=== PATIENT | female | born 1935 | race Caucasian/White ===

== ENCOUNTER 2024-09-25 17:50 | Inpatient (IN) | payer OTHER, SELFPAY ==
[2024-09-25] VITALS (20 sets, daily range): BP systolic 90–195; BP diastolic 46–101; BMI 27.3
[2024-09-25 14:47] LABS: % Basophils 0.4 % (0-2); % Eosinophils 0.5 % (0-6); % Immature Granulocytes 0.5 % (0-0.5); % Lymphocytes 5.1 % (20.5-51.1); % Monocytes 5.7 % (1.7-9.3); % Neutrophils 87.8 % (42.2-75.2); Absolute Basophils 0.1 10^3/uL (0-0.2); Absolute Eosinophils 0.1 10^3/uL (0-0.7); Absolute Immature Granulocytes 0.1 10^3/uL (0-0.05); Absolute Lymphocytes 0.6 10^3/uL (1.2-3.4); Absolute Monocytes 0.7 10^3/uL (0.1-0.6); Absolute Neutrophils 10.4 10^3/uL (1.4-6.5); Hematocrit 38.3 % (37.0-47.0); Hemoglobin 12.4 g/dL (12.0-16.0); Mean Corp Hgb Conc. 32.4 g/dL (33.0-37.0); Mean Corpuscular Hgb 30.6 pg (27.0-31.0); Mean Corpuscular Volume 94.6 fL (81.0-99.0); Mean Platelet Volume 10.5 fL (7.4-10.4); Nucleated Red Blood Cells % 0 %; Platelet Count 206 10^3/uL (130-400); Red Blood Cell Count 4.05 10^6/uL (4.20-5.40); Red Cell Dist. Width 13.7 % (11.5-14.5); White Blood Cell Count 11.8 10^3/uL (4.8-10.8)
[2024-09-25 14:55] LABS: ALT (SGPT) 15 U/L (0-35); AST (SGOT) 32 U/L (14-36); Albumin 4.3 g/dl (3.5-5.0); Alkaline Phosphatase 91 U/L (38-126); Blood Urea Nitrogen 30 mg/dl (7-17); Calcium 9.7 mg/dl (8.4-10.2); Carbon Dioxide 24 mmol/L (22-30); Chloride 105 mmol/L (98-107); Estimated Creatinine Clearance 34 ml/min; Glucose 176 mg/dl (70-99); Potassium 4.4 mmol/L (3.5-5.1); Sodium 139 mmol/L (135-145); Total Bilirubin 0.4 mg/dl (0.2-1.3); Total Protein 6.9 g/dl (6.3-8.2); eGFR 53.85
--- NOTE | 2024-09-25 15:05 | ED.GENMED ---
History of Present Illness
General
Chief Complaint: Chest Pain
Source: patient and family
Exam Limitations: none
Time Seen by Provider: 09/25/24 14:51
Nursing documentation reviewed up to this point in time: agreed with
History of Present Illness
History of Present Illness:
Patient is a 89-year-old female presents to the emergency department with chest pain that similar to her previous MD. Patient states that she had a little discomfort this morning when she woke up at around 1 PM she developed pressure in the
substernal region radiating into her back with nausea but no vomiting. Patient had increased stress today. Patient denies shortness of breath, diaphoresis or palpitations. Patient denies any increased pain with movement or breathing. Patient
denies any vomiting, diarrhea or constipation. Patient denies any melena or hematochezia. Patient has noted recently increasing exertional fatigue and dyspnea. Patient has 3 stents and her last MD was in July 2023. Patient does have a
history of diabetes, hypertension, elevated cholesterol. Patient does not smoke or have a history of smoking. Patient does have a family history of coronary artery disease. Patient denies any fever or chills, nasal congestion, sore throat or
cough. Patient was given aspirin 324 mg en route along with 2 nitroglycerin and no change. 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
Past History
Past History
ED Past Medical History: CAD, HTN, Hypercholesterolemia, NIDDM, MD and Renal failure
ED Past Surgical History: Cholecystectomy and Orthopedic
Social History
Tobacco: Non-smoker
Family History
Family History: CAD
Review of Systems
Review of Systems
All Other Systems: ROS reviewed and negative except as documented in HPI and ROS
Constitutional: Reports fatigue; Denies fever or chills
EENT: Reports no symptoms
Respiratory: Reports no symptoms
Cardiac: Reports chest pain; Denies diaphoresis or palpitations
ABD/GI: Reports nausea; Denies abdominal pain, vomiting, diarrhea, bloody stools or black stools
: Reports no symptoms
Musculoskeletal: Reports back pain
Skin: Reports no symptoms
Neurological: Reports no symptoms
Hematologic/Lymphatic: Reports no symptoms
Phy Exam
Physical Exam
Physical Exam:
Physical Exam
General: moderate distress, alert and appropriate, well nourished, well hydrated
HENT: Normocephalic, supple with no lymphadenopathy, no thyromegaly
Eyes: Clear sclera, conjuctiva without injection
Heart: Regular rhythm and rate. No S3, S4. No murmur. No NVD, bruit
Lungs: No respiratory distress, no stridor, lung sounds clear and equal bilaterally, chest wall symmetrical and nontender
Abdomen: Soft, mild midepigastric tenderness without guarding or rebound, no organomegaly, no CVA tenderness, BS good
Neuro: Alert and oriented x 3, CN II - XII intact, no motor focality, no cerebellar dysfunction
Skin: no rash
Psychiatric: well kept. interactive and cooperative
Extremities: No edema, cyanosis, tenderness
Scores
Heart Score for Chest Pain Patients
STEMI patient?: No
History: Highly Suspicious
ECG: Normal
Age: >/= 65 years
Risk Factors: >/= 3 Risk Factors or History of CAD
Troponin: >/= 3 x Normal Limit
Heart Score for Chest Pain Patients: 8
Heart Score Risk: 72.7 % MACE over next 6 weeks
Course
Orders/Labs/Results
Orders:
Orders
09/25/24 14:13
EKG [Electrocardiogram (*1)] Urgent
Reason for Study: Chest Pain
EKG- Treatment ONCE
09/25/24 14:33
Electrocardiogram (*1) Urgent
Reason for Study: Chest Pain
Cardiac Monitoring- Treatment ONCE
EKG- Treatment ONCE
IV Insert/Care/Rem.- Treatment PRN
09/25/24 14:35
Complete Blood Count/With Diff Urgent
Comprehensive Metabolic Panel Urgent
Glycohemoglobin (HgbA1c) Urgent
Troponin I Urgent
09/25/24 Dinner
Cholesterol Lowering
At Your Request: Full Participation
Does patient need a safe tray?: No
09/25/24 15:02
Morphine Sulfate 4 mg IV NOW STA
Nitroglycerin Ointment [Nitro-Bid] 1 inch TOPICAL NOW STA
Ondansetron Injectable [Zofran] 4 mg IV NOW STA
Pantoprazole [Protonix IV] 80 mg IV NOW STA
CR Chest Portable - 1 View Urgent
Comment:
Reason For Exam: chest pain
Reason Study Needs to be Portable: Patient Unstable
09/25/24 15:11
Heparin 4,000 units IV NOW STA
Nitroglycerin 100 mg/250 ml [Nitroglycerin Premix] 100 mg in 250 ml IV NOW
Initial dose in mcg/min, then titrate:: 5
Titrate to keep:: Chest Pain Free
Titrate by mcg/min:: 5 mcg/min, may increase by 10 mcg/min if dose > 20 mcg/min
Frequency of titrations (minutes):: every 3-5 minutes
Maximum dose in mcg/min:: 200
Begin to taper infusion when:: Remained at goal for 2hrs
Taper by mcg/min:: 5 mcg/min
Frequency of taper (minutes) if patient maintains goal:: 30
Taper to off?: Yes
If infusion off & no longer maintaining goal:: Contact Provider
Nursing to Place Non Medication Order As Directed
Physician Order: PTT 6 hours after initial start of Heparin infusion
Above order entered?: Yes
09/25/24 15:15
Heparin 28570 Units/250 ml 25,000 units in 250 ml IV PER PROTOCOL
Weight to be used for heparin protocol in kilograms (kg):: 67.7
Protocol:: Cardiac Tx/Acute Coronary
PTT Goal Range to be used:: PTT 73 to 111 seconds
Order type:: Initial
INITIAL Infusion Dose (UNITS/KG/hr) & then follow protocol:: 12 units/kg/hr
Infusion Dose in UNITS/hr & then follow protocol (UNITS/hr):: 800
INFUSION RATE in mL/hr & then follow protocol (mL/hr):: 8
PTT less than or equal to 64 seconds:: Increase rate by 200 units/hr (+ 2 mL/hr)
PTT 64.1 to 72.9 seconds:: Increase rate by 100 units/hr (+ 1 mL/hr)
PTT 73 to 111 seconds:: Target Range. No change in rate.
PTT 111.1 to 130.9 seconds:: Decrease rate by 100 units/hr (- 1 mL/hr)
PTT 131 to 199.9 seconds:: HOLD for 1 hr. Then decrease rate by 200 units/hr (- 2 mL/hr)
PTT greater than or equal to 200 seconds:: HOLD for 2 hrs & Notify Provider. Then decrease by 200 units/hr (-
2 mL/hr)
Lab follow-up:: Each change, PTT q6h until 2 consecutive are therapeutic. Then PTT
daily.
09/25/24 15:38
PTT Urgent
Comment: Obtain baseline before beginning heparin infusion if not already collected
09/25/24 15:47
EKG [Electrocardiogram (*1)] Urgent
Reason for Study: Chest Pain
09/25/24 16:43
Consult Cardiology [CARDIOLOGY CONSULT] Routine
Consulting Provider: Shanae Duran
Was physician already notified: Yes
09/25/24 16:46
US Legs, Left [US Periph Venous LOWER Ext LT] Urgent
Comment:
Reason For Exam: left calf discomfort, hx DVT
09/25/24 16:59
Admit/Transfer Patient As Directed
Co-Sign Provider:
Level of Care: Inpatient admission
Assign to:: IVU
Physician / Group: Supa Larry
Diagnosis: Chest Pain/NSTEMI
Reason for Hospitalization: Chest Pain/NSTEMI
Expected length of stay greater than two midnights?: Yes
ELOS- Estimated Length of Stay in days: 3
I certify the patient meets the requirements for IP care: Yes
PRN Pain Medication Management As Directed
May give lesser potent ordered pain med per pt: Yes
preference::
Protocol:: Medication orders for pain may be administered in a
manner that supports deferring to patient preference
when the pt is:
- Requesting an ordered lesser potent pain medication.
Least to most potent pain medications are defined
as: acetaminophen < NSAID < tramadol < opioids
(morphine, oxycodone, hydromorphone).
- Requesting a lesser dose of the same medication IF
ORDERED.
- Requesting a less intrusive route of administration
if both routes are prescribed by the provider (PO <
IV).
09/25/24 17:01
Code Status As Directed
Resuscitation Status: Full Code
09/25/24 18:03
Dextrose 50%-Water [Dextrose 50% Syringe] 12.5 grams IV [id number] PRN
Glucagon [GlucaGen] 1 mg IM PRN PRN
09/25/24 18:03
Echo 2D MMode Color/Doppler Routine
Reason for Study: chest pain
Activity As Directed
Activity Level: Out of Bed- Ad Estephania
Bedside Glucose Monitoring As Directed
Frequency: AC&HS
Additional Instructions:: Change to q6h if pt on TPN, tube feeding or not eating
INT (Intravenous Needle Therapy) As Directed
Comment: maintain peripheral IV access
Intake/ Output As Directed
Frequency: Per unit guidelines
Vital Signs As Directed
Frequency: q4h
Weight As Directed
Frequency: Once
09/25/24 19:30
Electrocardiogram (*1) Q6H
Reason for Study: Chest Pain
Comment: at admission and Q3H for total of 3, to be done with each troponin
09/25/24 19:46
TSH Routine
Troponin I Q3H
Comment: at admit & Q3H for 3 total including ED draws, obtain ECG with each level
09/25/24 22:00
HydrALAZINE [Apresoline] 50 mg PO TID
09/25/24 22:10
PTT Urgent
09/26/24 Breakfast
NPO
Allow oral meds: Yes
Allow clear liquids: No
Cardiovascular Evaluation IN AM
Complete Blood Count/No Diff IN AM
Comprehensive Metabolic Panel IN AM
Glycohemoglobin (HgbA1c) IN AM
09/26/24 07:30
Insulin Aspart Corrective Low [Novolog Flexpen-Low Resistance] See Protocol SC AC
09/26/24 08:00
Aspirin Low Dose EC [Aspir Low (Enteric Coated)] 81 mg PO DAILY
Clopidogrel Bisulfate [Plavix] 75 mg PO DAILY
ISOSORBIDE MONOnitrate ER [Imdur (Extended Release)] 30 mg PO DAILY
Metoprolol Xl [Toprol Xl] 12.5 mg PO DAILY
Pantoprazole [Protonix] 20 mg PO DAILY
Spironolactone [Aldactone] 12.5 mg PO DAILY
09/27/24 06:00
Complete Blood Count/No Diff IN AM
Comprehensive Metabolic Panel IN AM
09/28/24 06:00
Complete Blood Count/No Diff IN AM
Comprehensive Metabolic Panel IN AM
Abnormal Lab Results
09/25/24
14:35
WBC 11.8 H 10^3/uL
(4.8-10.8)
RBC 4.05 L 10^6/uL
(4.20-5.40)
MCHC 32.4 L g/dL
(33.0-37.0)
MPV 10.5 H fL
(7.4-10.4)
Abs Immat Gran (auto) 0.1 H 10^3/uL
(0-0.05)
Absolute Neuts (auto) 10.4 H 10^3/uL
(1.4-6.5)
Absolute Lymphs (auto) 0.6 L 10^3/uL
(1.2-3.4)
Absolute Monos (auto) 0.7 H 10^3/uL
(0.1-0.6)
Neutrophils % 87.8 H %
(42.2-75.2)
Lymphocytes % 5.1 L %
(20.5-51.1)
BUN 30 H mg/dl
(7-17)
Glucose 176 H mg/dl
(70-99)
Troponin I 1.170 H* ng/ml
09/25/24 14:35
09/25/24 14:35
Vital Signs
Initial and Last Documented VS:
Initial Vital Signs
Temp Pulse Resp BP Pulse Ox
97.2 F 66 12 166/72 98
09/25/24 14:15 09/25/24 14:15 09/25/24 14:15 09/25/24 14:15 09/25/24 14:15
Last Documented Vital Signs
Temp Pulse Resp BP Pulse Ox
97.9 F 65 20 127/61 96
09/25/24 19:36 09/25/24 17:45 09/25/24 19:36 09/25/24 17:45 09/25/24 19:36
*Critical Care Note
Total Time (30-74mins, 75-104mins- exclusive of procedures): 45 minutes
ED Attending Note
-
Portions of this chart may have been created with voice recognition software.� Occasional wrong word or��sound alike� substitutions may have occurred due to the inherent limitations of voice recognition software.
Discharge Plan
Departure
Patient Disposition: Admit
Date of Disposition: 09/25/24
Time of Disposition: 15:49
Admit to: IVU
Admit to doctor: Hospitalist
Presentation/result/management discussed w/ accepting MD/DO: Hospitalist
Patient with high blood pressure during this ER visit?: Yes
Condition: Critical
Covid-19: Not Applicable
Discharge Problem:
Non-ST elevated myocardial infarction (non-STEMI)
Interventions
Interventions:
*Risk Screen - Suicide Last Done: 09/25/24 14:15
*General Assessment Last Done: 09/25/24 14:15
*Neglect/Abuse Screening Last Done: 09/25/24 14:15
*ED COVID-19 Vaccine History Last Done: 09/25/24 14:15
*Nursing Disposition Last Done: 09/25/24 18:12
ED- Cardiac Assessment Last Done: 09/25/24 14:50
Discharge Date and Time
Discharge Date/Time: 09/25/24 18:15
[2024-09-25] MEDS: MORPHINE SULFATE 4 MG IV (15:26)
[2024-09-25] MEDS: ZOFRAN 4 MG IV (15:26)
[2024-09-25] MEDS: NITROGLYCERIN PREMIX 250 IV (15:26)
--- NOTE | 2024-09-25 15:56 | HPS.HSE ---
Family Physician
-
Family Physician:
Chief Complaint
-
Chest pain
History of Present Illness
Patient is a 89-year-old female with past medical history of hypertension, hyperlipidemia, CAD, CKD and diabetes who presented to [facility] for evaluation of chest pain. Patient stated that pain was present when she woke up this morning,
described as crushing pain midsternal that radiates to the back. After patient got up this morning she got prepared and went to a deposition that was a high stress environment she stated pains increased in intensity and then pain was associated with
diaphoresis and nausea without emesis. Patient normally follows with Dr. Rojas at [place]. Patient has significant family history of CAD. She notes that she has had recent fatigue and dyspnea with exertion although denies today. Patient denies
fever, chills, cough, vomiting, constipation, and diarrhea.
Medical History
Past Medical History
Past Medical History: Reports Other
Additional Past Medical History:
hypertension
hyperlipidemia
CAD
diabetes
CKD
GERD
Past Surgical History: Reports Other
Additional Past Surgical History:
Cholecystectomy
Cardiac cath with stent placement
DVT with filter placement
Social History
Tobacco: Non-smoker
Alcohol: None
Drug: None
Personal: Partner
Living: Other (with partner)
Employment: Retired
Family History
Family History: Other (Father: [place], CAD bypass; Mother: CAD, bypass; brother: CAD, bypass; Daughter: [place] with stent)
Allergies / Home Medications
Allergies reflects when Allergies were last updated in [facility].
Home Medications with original date entered in [facility]
Allergy/Medication List:
Allergies
Allergy/AdvReac Type Severity Reaction Status Date / Time
shellfish derived Allergy Severe Anaphylaxis Verified 09/25/24 15:25
pregabalin [From Lyrica] Allergy Unknown Unknown Verified 09/25/24 15:25
Ltwedom-MVY-VvT Reductase Allergy Unknown Verified 09/25/24 15:25
Inhibitor
Home Medications
aspirin 81 mg tablet,delayed release 81 mg PO DAILYPRN PRN chest pain 09/25/24
clopidogrel 75 mg tablet (Plavix) 75 mg PO DAILY 09/25/24
docusate sodium 100 mg capsule (Colace) 100 mg PO DAILYPRN PRN cosntipation 09/25/24
hydralazine 50 mg tablet 50 mg PO TID 09/25/24
insulin aspart (niacinamide)(U-100) 100 unit/mL(3 mL) subcutaneous pen (Fiasp FlexTouch U-100 Insulin) 3 unit SC DAILYPRN PRN bs greater then 150 09/25/24
isosorbide mononitrate 30 mg tablet,extended release 24 hr 30 mg PO DAILY 09/25/24
metoprolol succinate 25 mg tablet,extended release 24 hr (Toprol XL) 12.5 mg PO DAILY 09/25/24
nitroglycerin 0.4 mg sublingual tablet (Nitrostat) 0.4 mg sublingual [id number] PRN chest pain 09/25/24
pantoprazole 20 mg tablet,delayed release (Protonix) 20 mg PO DAILY 09/25/24
psyllium 1 packet PO DAILYPRN PRN constipation 09/25/24
spironolactone 25 mg tablet 12.5 mg PO DAILY 09/25/24
Review of Systems
-
History Source: Patient
A 12 point ROS was completed and negative except as noted: Yes
Constitutional: Reports Fatigue
EENT: Reports No Symptoms
Respiratory: Reports No Symptoms
Cardiac: Reports Chest Pain and Diaphoresis
Abdomen/GI: Reports Nausea
: Reports No Symptoms
Musculoskeletal: Reports No Symptoms
Skin: Reports No Symptoms
Neurological: Reports No Symptoms
Endocrine: Reports No Symptoms
Hematologic/Lymphatic: Reports No Symptoms
Psych: Reports No Symptoms
Physical Exam
Vital Signs
Vital Signs
Temp Pulse Resp BP Pulse Ox
97.2 F 68 25 195/82 97
09/25/24 14:15 09/25/24 14:45 09/25/24 14:45 09/25/24 14:33 09/25/24 14:45
Physical Exam
General: Well Developed, Well Nourished, Conversant and Pain
HEENT: NormoCephalic, Moist mucous membranes, Atraumatic, PERRLA, [place] Conjunctivae, Nose Appears Normal and Ears Appear Normal
Respiratory: Clear and Non Labored Respirations
Cardiac: S1/S2, Regular Rhythm and Calf Tenderness (left calf); No Murmur, Rub or Gallop
Breast: Deferred by me
GI: Soft, Non Tender, Non Distended and Normal Bowel Sounds; No Organomegaly
Rectal: Deferred by Provider
Genito-urinary: Deferred by me
Musculoskeletal: No Clubbing, No Cyanosis and No Edema
Skin: Warm and IV/Catheter Site; No Rash
Neuro: Awake, Alert, AO x 3 and Nonfocal/grossly intact
Psych: Calm and Intact Judgment/Insight
Laboratory Results
-
09/25/24 14:35
09/25/24 14:35
Laboratory Results
Total Bilirubin 0.4 mg/dl (0.2-1.3) 09/25/24 14:35
AST 32 U/L (14-36) 09/25/24 14:35
ALT 15 U/L (0-35) 09/25/24 14:35
Alkaline Phosphatase 91 U/L (38-126) 09/25/24 14:35
Troponin I 1.170 ng/ml H* 09/25/24 14:35
Data Reviewed
-
Diagnostic Radiology: Report Reviewed by me (CXR: Mild elevation of right hemidiaphragm. No pneumothorax. Possible old healed fracture of the proximal left humerus. Clinical correlation recommended as to any symptomatology.)
Medical Tests (Nuc Med, Echo, EKG etc): Report Reviewed by me (EKG: NORMAL SINUS RHYTHM)
Lab Data: Labs Reviewed by me (WBC 11.8, BUN 30, Troponin 1.170)
Impression/Plan
-
IMPRESSION/PLAN:
#NSTEMI
Previous [place], last 07/2023
Hx 3 Stents
EKG: NORMAL SINUS RHYTHM
- Admit to IVU
- Consult Cardiology
- Trend troponin with EKG
- Nitro gtt
- Heparin gtt
#CAD
Previous [place], last 07/2023
Hx 3 Stents
- continue aspirin, clopidogrel, isosorbide, and PRN SL nitroglycerin
#benign hypertension
- continue hydralazine, metoprolol and spironolactone
#hyperlipidemia
- allergy to statins
#Diabetes
- continue insulin
- AccuChecks AC & HS
- SSI
- A1C
#Chronic Kidney disease III
BUN 30, Creat 1.0
#GERD
- continue pantoprazole
Full Code
DVT Prophylaxis: Heparin
[2024-09-25 16:02] LABS: APTT 30.1 Sec (23.4-35.0)
[2024-09-25] MEDS: HEPARIN 4000 UNITS IV (16:09)
[2024-09-25] MEDS: HEPARIN 25000 UNITS/250 ML IV (16:10)
--- NOTE | 2024-09-25 17:15 | W.PN.UPDATE ---
Update Note
Progress Note Update
This note serves as an addendum to the H&P by jail manager SKYLA Lorena Feldman
HPI
89F CAD with 3 stents , HTN, Hypercholesterolemia, NIDDM, DC and CKD seen at ER:
- CP that similar to her previous DC
- woke up with slight chesy discomfort this morning
- Then she woke up at around 1 PM she developed pressure in the substernal region radiating into her back
- POS nausea but no vomiting
- Patient was given aspirin 324 mg en route along with 2 nitroglycerin and no change.
P cloth stretcher is Dr. Rojas @ [facility]
ROS
denies shortness of breath, diaphoresis or palpitations.
3 stents and her last DC was in July 2023.
POS FHX : CAD
Reviewed VS: BP 195/82 --> 165/77
PE
Gen: NAD
HEENT: anicteric
Neck: supple
Lungs: CTA
Cor: RRR S1 s2
Abdomen: sofr benign
[employer]: AAO3
MS: no edema
Psych: appropriate
Data
09/25/24
14:35
WBC 11.8 H
Creatinine 1.0
eGFR 53.85
Troponin I 1.170 H*
CXR:
Mild elevation of right hemidiaphragm.
No pneumothorax.
Possible old healed fracture of the proximal left humerus. Clinical correlation recommended as to any symptomatology.
EKG
NORMAL SINUS RHYTHM
NORMAL ECG
WHEN COMPARED WITH ECG OF 25-SEP-2024 14:16,
NO SIGNIFICANT CHANGE WAS FOUND
Confirmed by CHIN CRAFT MD, YENI ([id number]) on 09/25/2024 3:58:28 PM
NO PRIOR hospitalist admission:
ASSESSMENT & PLAN
NSTEMI ACS with current CP
Previous DC, last 07/2023
HX CAD with 3 Stents
HLD: Allergic to Statins
P cloth stretcher is Dr. Rojas @ [place]
- Keep NPO after MN in case cath in AM
- POS first TPNI
- Trend troponin with EKG
- cont. Aspirin, clopidogrel
- Nitro gtt to titrate for pain free
- Heparin gtt
- ECHO
- DCA card consulted
HTN emergency
- agree with NTG gtt
- continue hydralazine, metoprolol and spironolactone
Hyperlipidemia
- allergy to statins
Diabetes
- continue insulin
- AccuChecks AC & HS
- SSI
- A1C
CKD3a
b/l eGFR 50s
BUN 30, Creat 1.0
DVT Px: on Heparin gtt
Full code
IVU
--- NOTE | 2024-09-25 18:05 | CON.CAR ---
Consultation
Consultation Request
Date/Time Consultation Requested: 09/25/2024 4:45 PM
Date/Time Consultation Performed: 09/25/2024 4:50 PM
Requesting Provider: Rachana Feldman
Performing Provider: Dr. Shanae Duran
Reason for Consultation: Angina
Medical History
-
Chief Complaint: Chest discomfort
History of Present Illness:
She is a pleasant 89-year-old woman who usually has her cardiac care at [facility]. She knows much of her history. She tells me she has prior history of myocardial infarction with stent in 2011. She had recurrent myocardial
infarction and stent in 2022. She recently saw plant director at [facility] who was new to her [address] Rojas. Patient has been struggling with hypertension at home. About 6 weeks ago she was having chest discomfort and admitted by
report to [facility]. She tells me she underwent a stress test and possibly an echocardiogram. She tells me they wanted to proceed with cardiac catheterization but she declined.
She is diabetic.
She has been noticing increased fatigue. She felt a little chest discomfort this morning. 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 She came to the ER with chest discomfort. EKG
without acute abnormality x 2. First troponin elevated at at 1.17 consistent with non-Q wave myocardial infarction. Chest symptoms have improved and are very mild. She has no other current associated symptoms. She does note recent dental work
and jaw discomfort. She feels that this is unrelated to chest discomfort. She has no GI or urologic bleeding other than some hemorrhoidal bleeding related to constipation.
She tells me she does have a Tor[place] filter in place for DVT of her leg over 40 years ago.
She tells me she is intolerant to multiple medications including 'cholesterol medicines ', amlodipine, IV contrast dye and we are awaiting final list of medications she is allergic to.
Past Medical History
Past Medical History: CAD (Myocardial infarction 2011, 2022 with 3 stents by report), HTN, Hypercholesterolemia, NIDDM, LA, Renal Failure (History of chronic kidney disease) and Other (Back pain, Achilles tendinitis, Torrey filter for DVT 40
years ago, recent dental work, hemorrhoids)
Past Surgical History: Cholecystectomy and Orthopedic (Wrist surgery, back surgery, hip surgery,)
Social History
Tobacco: Non-Smoker
Alcohol: None
Family History
Family History: Reviewed & Not Pertinent
Allergies / Home Medications
Allergy/AdvReac Type Severity Reaction Status Date / Time
shellfish derived Allergy Severe Anaphylaxis Verified 09/25/24 17:33
bempedoic acid Allergy Mild Unknown Verified 09/25/24 17:33
[From Nexletol]
pregabalin [From Lyrica] Allergy Unknown Unknown Verified 09/25/24 17:33
amlodipine Allergy Unknown Verified 09/25/24 17:33
carisoprodol Allergy Unknown Verified 09/25/24 17:33
cephalexin Allergy Rash Verified 09/25/24 17:33
colesevelam Allergy Unknown Verified 09/25/24 17:33
cyclobenzaprine Allergy Unknown Verified 09/25/24 17:33
[From Flexeril]
ezetimibe Allergy Unknown Verified 09/25/24 17:33
fish oil Allergy Unknown Verified 09/25/24 17:33
gabapentin Allergy Unknown Verified 09/25/24 17:33
hydromorphone Allergy Itching Verified 09/25/24 17:33
Iodinated Contrast Media Allergy Anaphylaxis Verified 09/25/24 17:33
lisinopril Allergy Unknown Verified 09/25/24 17:33
losartan Allergy Itching Verified 09/25/24 17:33
naproxen Allergy Rash Verified 09/25/24 17:33
niacin Allergy Unknown Verified 09/25/24 17:33
povidone-iodine Allergy Unknown Verified 09/25/24 17:33
red yeast rice Allergy Unknown Verified 09/25/24 17:33
Lbifmwy-GLQ-XcX Reductase Allergy Unknown Verified 09/25/24 17:33
Inhibitor
tramadol Allergy Itching Verified 09/25/24 17:33
muscle relaxers Allergy Unknown Uncoded 09/25/24 17:33
�Medication �Instructions �Recorded �Confirmed �Type
aspirin 81 mg tablet,delayed 81 mg PO DAILYPRN PRN chest pain 09/25/24 09/25/24 History
release
clopidogrel 75 mg tablet (Plavix) 75 mg PO DAILY 09/25/24 09/25/24 History
docusate sodium 100 mg capsule 100 mg PO DAILYPRN PRN cosntipation 09/25/24 09/25/24 History
(Colace)
hydralazine 50 mg tablet 50 mg PO TID 09/25/24 09/25/24 History
insulin aspart 3 unit SC DAILYPRN PRN bs greater 09/25/24 09/25/24 History
(niacinamide)(U-100) 100 unit/mL(3 then 150
mL) subcutaneous pen (Fiasp
FlexTouch U-100 Insulin)
isosorbide mononitrate 30 mg 30 mg PO DAILY 09/25/24 09/25/24 History
tablet,extended release 24 hr
metoprolol succinate 25 mg 12.5 mg PO DAILY 09/25/24 09/25/24 History
tablet,extended release 24 hr
(Toprol XL)
nitroglycerin 0.4 mg sublingual 0.4 mg sublingual [id number] PRN 09/25/24 09/25/24 History
tablet (Nitrostat) chest pain
pantoprazole 20 mg tablet,delayed 20 mg PO DAILY 09/25/24 09/25/24 History
release (Protonix)
psyllium 1 packet PO DAILYPRN PRN 09/25/24 09/25/24 History
constipation
spironolactone 25 mg tablet 12.5 mg PO DAILY 09/25/24 09/25/24 History
Review of Systems
-
History Source: Patient
All other systems: Negative unless noted
Cardiac: Chest Pain
Musculoskeletal: Joint Pain and Muscle Pain
Physical Exam
Vital Signs
Temp Pulse Resp BP Pulse Ox
97.2 F 65 13 127/61 97
09/25/24 14:15 09/25/24 17:45 09/25/24 17:45 09/25/24 17:45 09/25/24 17:45
Lab Results
09/25/24 14:35
09/25/24 14:35
Troponin I 1.170 ng/ml H* 09/25/24 14:35
General: Well developed, well nourished in NAD.
Neck: Supple, no JVD, HJR, carotids +2 B/L, no bruits bilaterally.
Heart: 2/6 basal systolic murmur
Lungs: Clear to auscultation bilaterally, no wheeze, rhonchi, rubs bilaterally,
Extremities: No clubbing, cyanosis or edema bilaterally.
Neuro: Grossly nonfocal, awake, alert and oriented x3.
Impression / Plan
-
Underwriting Specialist: Dr. Rojas [facility]
Impression:
Non-Q wave myocardial infarction
Coronary artery disease with myocardial infarction by report in 2011 and 2022. Total of 3 stents altogether by report ([facility])
Hypertension with recent difficulty controlling
Diabetes mellitus
Hyperlipidemia intolerant to medication unclear if patient has been tried on Zetia or injectable lipid-lowering
Fatigue
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
Chronic kidney disease
Hemorrhoids with constipation
Multiple medication allergies including allergy to IV contrast
Plan:
Patient with non-Q wave myocardial infarction in the setting of significant hypertension and known coronary artery disease (prior myocardial infarctions) with stents. Admit to IVU.
Continue IV nitrates and heparin
Continue aspirin. She is also on clopidogrel as an outpatient. Continue.
Continue good blood pressure control with antihypertensive medication and nitrates
Trend troponins
Follow EKGs and telemetry
Obtain records from [facility]
NPO. She is considering cardiac catheterization. Discussed again with patient in a.m. Certainly if she becomes unstable this would move up timetable.
Check echocardiogram
Try to get specifics regarding lipid-lowering medication intolerances
Diabetes treatment per primary service
Lipids pending
Continue treatment of hypertension
Discussed with patient and her niece at the bedside.
Data Reviewed
-
EKG: Tracing Personally Visualized and interpreted
Radiology: Image Personally Visualized and interpreted
Labs: Labs Reviewed by me
Old Records: Requested
--- NOTE | 2024-09-25 19:11 | PTCARENOTE ---
received patient for ER with active chest pain, 9 out of 10, center of chest radiating to back, o2 2 LNC put on, increased IV nitroglycerin gtt. to 50 mcg or 7.5cchour as per ordered. IV heparin @ 800 units/hr via left arm without difficulties. INT
in right arm flushes well. patient voided 800cc on bed schrader. patient c/o bilat leg cramps. monitor shows NSS, VSS. oriented to room and surroundings. walking rounds completed with oncoming RN's.
--- NOTE | 2024-09-25 20:50 | PTCARENOTE ---
Adm hx completed at change of shift. Daughter present at bedside. IV NTG and IV Heparin infusing. Pt currently cp free. Cardiac education booklet given to pt along with plan of care. Pt aware of npo status after mn for probable cath in am.
call penn within reach
[2024-09-25 20:57] LABS: TSH 2.16 uIU/ml (0.47-4.68)
[2024-09-25] MEDS: TYLENOL 650 MG PO (22:11)
[2024-09-25 22:13] LABS: Glucose - Point of Care 95 mg/dl (70-99)
[2024-09-25] MEDS: APRESOLINE 50 MG PO (22:13)
--- NOTE | 2024-09-25 22:31 | PTCARENOTE ---
Pt with c/o h/a 6 out of 10 medicated with Tylenol and ice pack applied. No c/o cp systolic b/p 102, nTG gtt decreased to 40 mcq.
[2024-09-25 22:41] LABS: APTT 162.9 Sec (23.4-35.0)
[2024-09-26] VITALS (32 sets, daily range): BP systolic 86–144; BP diastolic 35–65; BMI 26.3
--- NOTE | 2024-09-26 04:07 | DOWNTIME ---
There was a [employer] Client Unloading Checker Downtime on 09/26/2024 from 0100 to 09/26/2024 at 0350. Downtime documentation of patient's care, including medication administrations, has been reconciled in the electronic record per guidelines. Refer to the
patient's paper chart under the miscellaneous tab to see printed paper medication records and downtime forms.
--- NOTE | 2024-09-26 04:59 | PTCARENOTE ---
Pt oob with nursing to bsc assist x two this shift. Gait unsteady with c/o dizziness with change in position. b/p 90's systolic, NTG gtt weaned over cnc machinist 2nd shift and is currently off. Pt c/o h/a at HS medicated with Tylenol with relief. Pt denies cp
overnight. O2 at 2 lit n/c maintained.
Sinus carolee on telemetry. PA made aware of b/p no new orders. call penn within reach.
[2024-09-26 06:10] LABS: ALT (SGPT) 14 U/L (0-35); AST (SGOT) 33 U/L (14-36); Albumin 3.6 g/dl (3.5-5.0); Alkaline Phosphatase 75 U/L (38-126); Blood Urea Nitrogen 37 mg/dl (7-17); Calcium 9.3 mg/dl (8.4-10.2); Carbon Dioxide 25 mmol/L (22-30); Chloride 105 mmol/L (98-107); Estimated Creatinine Clearance 22 ml/min; Glucose 131 mg/dl (70-99); HDL Cholesterol 60 mg/dl; LDL Cholesterol, Calculated 117 mg/dl; Potassium 4.9 mmol/L (3.5-5.1); Sodium 139 mmol/L (135-145); Total Bilirubin 0.6 mg/dl (0.2-1.3); Total Cholesterol 192 mg/dl (50-199); Triglyceride 78 mg/dl (10-149); Very Low Density Lipoprotein 15 mg/dl (0-30); eGFR 35.96
[2024-09-26 06:11] LABS: Hematocrit 35.1 % (37.0-47.0); Hemoglobin 11.4 g/dL (12.0-16.0); Mean Corp Hgb Conc. 32.5 g/dL (33.0-37.0); Mean Corpuscular Hgb 30.2 pg (27.0-31.0); Mean Corpuscular Volume 93.1 fL (81.0-99.0); Mean Platelet Volume 11.2 fL (7.4-10.4); Platelet Count 197 10^3/uL (130-400); Red Blood Cell Count 3.77 10^6/uL (4.20-5.40); Red Cell Dist. Width 13.6 % (11.5-14.5); White Blood Cell Count 7.9 10^3/uL (4.8-10.8)
[2024-09-26 06:32] LABS: APTT 72.1 Sec (23.4-35.0)
--- NOTE | 2024-09-26 08:37 | W.PN.CARDCBS ---
Addendum entered and electronically signed by Osbaldo Laughlin MD 09/26/24 10:20:
Attending addendum: Patient seen and examined. PA note reviewed and findings confirmed by me. Briefly, this is an 89 y/o female with known CADz and prior LA in 2011 and 2022. She reports prior LA's at [place] afterwards she wore a LifeVest.
We have no records of prior coronary interventions. She tells me she was at [place] a few weeks ago with nausea and vomiting. She states that her troponin was elevated at that time and that they wanted to do a cardiac catheterization which she
had refused. She had a subsequent echo and stress. 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 Multiple intolerances to medications including
statin drugs with LDL 117 mg/dl. She also reported issues with 'anaphylaxis' associated with IV contrast. Troponin peaked at 2.44 ng/ml
PE:
Gen: Awake, interactive, pleasant, NAD
HEENT: NC/AT, sclera anicteric
Lungs: Clear bilaterally
CV: RRR
Ext: no edema
RECOMMENDATIONS:
-I have called [facility]'s contact and lab technologist. We have called medical records x 2. Awaiting reports and hopefully digital transfer of images
-Failed medical management with recurring chest pain and elevated troponin
-I discussed risk and benefit of coronary angiography
-She stated that she wore a LifeVest after her LA. Would be helpful to know EF so will do echocardiogram this am
-Risk and benefits of coronary angiography have been explained to patient
Original Note:
Today's Communication / Plan
-
Continue IV heparin.
No further chest pain overnight. Keep NPO for [facility] today.
Records have been requested from [facility]
Check echo
Continue trending troponin to peak
Impression / Plan
-
Item Repair Manager: Dr. Rojas [facility]
Impression:
Presented with chest pain.
NSTEMI
CAD
h/o LA in 2011 and 2022. Total of 3 stents altogether by report ([facility])
Hypertension with recent difficulty controlling
Diabetes mellitus
Hyperlipidemia intolerant to medication
Fatigue
History of DVT with [place] filter more than 40 years ago
Chronic kidney disease
Hemorrhoids with constipation
Multiple medication allergies including allergy to IV contrast
Plan:
-Recent hospitalization at [facility] a few weeks ago for chest pain. Refused cath at the time. Had stress test and possibly echo and follow-up.
-Presented to with recurrent chest pain. Troponin elevated at 1.17 on arrival, trending up overnight to 2.44. Continue to trend to peak.
-Pain improved on nitro gtt. weaned off overnight. No recurrent chest pain this a.m.
-Patient is agreeable to cath. Remains NPO.
-Continue IV heparin.
-She has history of IV contrast allergy. 200 mg hydrocortisone given this a.m. Will also treat with 50 mg Benadryl.
-Creatinine 1.4.
-Continue aspirin 81 mg daily and Plavix 75 mg daily which she is on as outpatient.
-BP stable this a.m. Continue hydralazine, Toprol, and spironolactone.
-She has reported history of intolerance to statins, Zetia, and Nexletol. Unclear if she has been tried on PCSK9 inhibitors. LDL 117.
-Check HgbA1c.
-Check echo
-Records have been requested from primary emergency medicine nurse practitioner. Await review.
Progress Note - Item Repair Manager
Subjective
Date of Service: September 26, 2024
No further chest pain this morning
Objective
Labs:
09/26/24 05:37
09/26/24 05:37
Labs
Hgb 11.4 g/dL (12.0-16.0) L 09/26/24 05:37
Hct 35.1 % (37.0-47.0) L 09/26/24 05:37
Plt Count 197 10^3/uL (130-400) 09/26/24 05:37
APTT 72.1 Sec (23.4-35.0) H 09/26/24 05:37
Sodium 139 mmol/L (135-145) 09/26/24 05:37
Potassium 4.9 mmol/L (3.5-5.1) 09/26/24 05:37
BUN 37 mg/dl (7-17) H 09/26/24 05:37
Creatinine 1.4 mg/dL (0.6-1.0) H 09/26/24 05:37
Glucose 131 mg/dl (70-99) H 09/26/24 05:37
Troponins
09/25/24 09/25/24
14:35 19:46
Troponin I 1.170 H* 2.440 H* D
Vital Signs and I&O:
Vital Signs
Temp Pulse Resp BP Pulse Ox
98 F 58 20 122/44 98
09/26/24 07:41 09/26/24 07:42 09/26/24 07:41 09/26/24 07:42 09/26/24 07:41
Vital Signs
Temp Pulse Resp BP Pulse Ox
98 F 58 20 122/44 98
09/26/24 07:41 09/26/24 07:42 09/26/24 07:41 09/26/24 07:42 09/26/24 07:41
Intake & Output
09/24/24 09/25/24 09/26/24 09/27/24
06:59 06:59 06:59 06:59
Intake Total 15.5 / 15.5
Output Total 1350 / 1350 100 / 100
Balance -1334.5 / -1334.5 -100 / -100
Physical Exam
Physical Exam
GEN: No distress, awake, alert, oriented x3
HEENT: supple, anicteric, mmm
LUNGS: CTA b/l, no wheezes/rales
CV: Reg, S1/S2, 2/6 murmur
EXT: No clubbing, cyanosis, or edema
NEURO: Gross non-focal
SKIN: Warm, dry, no rash
[2024-09-26 08:41] LABS: Glucose - Point of Care 115 mg/dl (70-99)
[2024-09-26] MEDS: SOLU-CORTEF 200 MG IV ×2 (09:19→13:15)
[2024-09-26] MEDS: TOPROL XL 12.5 MG PO (09:20)
[2024-09-26] MEDS: ASPIR LOW (ENTERIC COATED) 81 MG PO (09:20)
[2024-09-26] MEDS: PLAVIX 75 MG PO (09:21)
[2024-09-26 09:30] LABS: Glycohemoglobin (HgbA1c) 6.3 % (4.0-5.6)
--- NOTE | 2024-09-26 09:32 | W.PN.HOSP.TC ---
Today's Communication/Plan
-
see A/P
Assessment / Plan
Assessment / Plan
HPI: 89 yo F PMH CAD s/p 3 stents, HTN, HLD, NIDDM, CKD, p/w CP that felt similar to her previous [place].
She woke up with chest discomfort in the morning.
Patient was given aspirin 324 mg en route along with 2 nitroglycerin and no change.
Her aoc director combat plans officer is Dr. Rojas from [facility]
A/P:
# Chest pain likely 2/2 ACS/NSTEMI
# h/o CAD s/p 3 stents
Troponin 1.170 -> 2.44, cont to trend til peak
EKG noted, unrevealing
cont Aspirin, clopidogrel
Cont Nitro gtt
Cont Heparin gtt
Check ECHO
DCA card consulted, plan for cath today 09/26
# HTN emergency, resolved
Cont Nitro gtt as above
Cont EMERGENCY MEDICINE MEDICAL DIRECTOR hydralazine, metoprolol, and spironolactone
# Hyperlipidemia
allergic to statins
# IDDM
Pt on Aspart PRN EMERGENCY MEDICINE MEDICAL DIRECTOR
Cont SSI coverage
Follow A1C
# NERIS on CKD stage 3, ?cardiorenal
Follow SCr
DVT ppx: on Heparin gtt
Full code
DW RN
CC Mx for ACS
CC time 38 min
Anticipated Discharge: 24 - 48 hours
Subjective/Interval History
-
Date of Service: September 26, 2024
Objective Data
-
Labs:
Laboratory Results
09/25/24 09/26/24 09/26/24
22:11 05:37 14:00
WBC 7.9
Hgb 11.4 L
Hct 35.1 L
Plt Count 197
APTT 162.9 H* 72.1 H Pending
Sodium 139
Potassium 4.9
Chloride 105
Carbon Dioxide 25
BUN 37 H
Creatinine 1.4 H
Glucose 131 H
Calcium 9.3
Total Bilirubin 0.6
AST 33
ALT 14
Alkaline Phosphatase 75
Vital Signs:
Vital Signs
Temp Pulse Resp BP Pulse Ox
36.6 C 58 20 122/44 98
09/26/24 07:41 09/26/24 07:42 09/26/24 07:41 09/26/24 07:42 09/26/24 07:41
I&O
09/25/24 09/26/24 09/27/24
06:59 06:59 06:59
Intake Total 15.5 / 15.5
Output Total 1350 / 1350 100 / 100
Balance -1334.5 / -1334.5 -100 / -100
Review of Systems
-
All other systems: Reviewed and negative
Cardiac: Reports Chest Pain (improved )
Physical Exam
-
General: Well Developed, Well Nourished, No Apparent Distress, Comfortable and Conversant; Negative Respiratory Distress
HEENT: Normocephalic, Atraumatic, Nose Appears Normal and Ears Appear Normal; Negative Oxygen
Respiratory: Clear to Auscultation and Non Labored Respirations; Negative Accessory Resp Muscle Use
Cardiac: Regular Rhythm and S1/S2
GI: Soft, Nontender, Nondistended and Normal Bowel Sounds
Skin: Warm and Dry
Neuro: Awake, Alert, Oriented and AO x 3
Psych: Calm and Intact Judgement/Insight
Data Reviewed
-
Labs: Labs Reviewed by me
[2024-09-26] MEDS: APRESOLINE 50 MG PO ×2 (09:36→15:45)
[2024-09-26] MEDS: PROTONIX 20 MG PO (09:39)
[2024-09-26 09:59] LABS: Troponin I 0.805 ng/ml
[2024-09-26 12:51] LABS: Glucose - Point of Care 141 mg/dl (70-99)
[2024-09-26] MEDS: BENADRYL 50 MG IV (13:12)
--- NOTE | 2024-09-26 13:14 | W.PN.UPDATE ---
Update Note
Progress Note Update
Records received from primary oyster bed worker. Summarized below.
[facility] 07/07/2023: LM: Eccentric 20% stenosis distally. LAD: 90% proximal stenosis of first diagonal. LCx: 60 to 70% stenosis at the ostium. RCA: 60 to 70% mid stenosis within the previously stented segment of the vessel. Status post PCI of first
diagonal artery with no residual stenosis.
Lexiscan stress test 09/15/2024. Normal perfusion with EF 83%. Chest pain noted during study.
Echo 06/16/2024: EF 55 to 60%, no RWMA, aortic sclerosis with mild AI, no . MAC with mild MR, trace TR
[2024-09-26 14:34] LABS: ACT-LR - POC 298 Seconds (116-155)
[2024-09-26 14:49] LABS: ACT-LR - POC 331 Seconds (116-155)
--- NOTE | 2024-09-26 14:59 | ITS.CL.CATH ---
[facility] - Catheterization
Cardiac Catheterization
Procedure Report:
LEFT HEART CATH AND CORONARY INTERVENTION
Date of Procedure: September 26, 2024
Referring: Dr. Shanae Duran
PROCEDURES:
1. Left heart catheterization with coronary angiography
2. Successful stenting of the mid right coronary artery with a 3.0 x 18 mm Nate stent that was postdilated to high pressures with a 3.0 mm noncompliant balloon
INDICATION: This is an 89-year-old female who typically receives the majority of her cardiac care at [facility] and was recently evaluated by Dr. Rojas. 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
discomfort. She was admitted to [facility] where she subsequently ruled in for non-ST segment elevation myocardial infarction with peak troponin of 2.44 ng/ml and is now referred for coronary angiography.
ACCESS: Right radial pulse. Arterial access was obtained with ultrasound guidance in the right common femoral artery and a 6 Peruvian sheath was inserted
HEMODYNAMICS (mmHg):
AO (s/d, m) : 201/81, 131
LV (s/d) : 196/18
LVEDP : 26
CORONARY FINDINGS
Dominance: Right
LEFT MAIN: Calcified 40% tubular narrowing with focal 20% distal stenosis
LEFT ANTERIOR DESCENDING: The LAD arises normally from the left main and runs in the anterior interventricular groove. There is a 30% ostial LAD stenosis. The first diagonal branch arises from the proximal third of the LAD and the stent in its
midportion is widely patent. The mid LAD beyond the first diagonal branch has minor irregularities but no high-grade focal obstructive stenosis. The LAD reaches but does not wraparound the apex. Several smaller diagonal branches arise from the
mid LAD.
CIRCUMFLEX: Eccentric 60-70% ostial stenosis which had been noted on the prior angiograms from 07/2023. OM1 arises proximally from the circumflex. OM 2 is a medium caliber vessel. The circumflex continues in the AV groove terminating in a small to
medium caliber posterolateral branch
RIGHT CORONARY: The right coronary artery is a dominant vessel. There is a stent in the proximal right coronary artery that is patent. The mid right coronary artery is calcified and has an eccentric 60-70% hazy stenosis
VENTRICULOGRAPHY: Not done
ANGIOPLASTY PROCEDURE DETAIL: After review of the diagnostic catheterization the decision was made to proceed with percutaneous revascularization of the high-grade mid RCA stenosis. Patient arrived to the catheterization laboratory on background
therapy of aspirin and clopidogrel. Intravenous heparin was administered and the ACT was monitored throughout the procedure and maintained within therapeutic limits. Primary stenting was performed with placement of a 3.0 x 18 mm Nate stent that
was implanted at 14 kartik before achieving full stent expansion and was postdilated at 20 kartik with a 3.0 mm noncompliant balloon
RADIATION SUMMARY: Fluoro Time (min): 5.6, Dose (mGy): 348, DAP (Gy.cm2) : 28.3
CONCLUSIONS
1. Successful stenting of the mid right coronary artery with placement of a 3.0 x 18 mm Nate stent implanted at nominal pressures and postdilated with a 3.0 mm noncompliant balloon
2. Residual coronary disease at the ostium of the circumflex with YOLANDA-3 flow distally. The ostium of the LAD has 30% stenosis.
RECOMMENDATIONS
1. Angiograms were transferred via [facility] to [facility]
2. Uninterrupted dual antiplatelet therapy
3. Followup with Dr. Rojas. She clealy needs better risk modification but this has been limited due to multiple allergies.
Copy to: Dr. Benton and Dr. Rojas
--- NOTE | 2024-09-26 15:12 | CM ---
CM following for DC planning needs.
Met w/ patient's dtr. at bedside. 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
Introduced CM, explained role.
Pt. resides w/ sig. other in a private, 1 story home. She is functionally indep. at baseline w/ ADLs, mobility without the use of any assisted device.
She has used [facility] in the past and would prefer to use them again as this has helped post hospitalization.
Will send referral.
Anticipate home w/ [facility]
Will follow.
[2024-09-26] MEDS: SUBLIMAZE 25 MCG IV (15:40)
[2024-09-26] MEDS: ALDACTONE 12.5 MG PO (15:43)
[2024-09-26 17:47] LABS: Glucose - Point of Care 142 mg/dl (70-99)
--- NOTE | 2024-09-26 19:02 | PTCARENOTE ---
Pt received this am with no c/o of chest pain or sob. OOB with 1 assist and a walker to the BR. Pt returned post cath at 1525. Pt c/o of 10/10 chest pain to middle back. ECG done with no changes. Dr. Laughlin aware and medicated with Fentanyl 25mg IV
as ordered with complete relief obtained.
[2024-09-26] MEDS: TOPROL XL 25 MG PO (19:15)
[2024-09-26] MEDS: TYLENOL 650 MG PO (20:07)
[2024-09-26 22:30] LABS: Glucose - Point of Care 164 mg/dl (70-99)
[2024-09-26] MEDS: APRESOLINE PO (22:51)
[2024-09-27] VITALS (12 sets, daily range): BP systolic 83–129; BP diastolic 40–82; BMI 26.4
--- NOTE | 2024-09-27 00:06 | PTCARENOTE ---
Pt received start of shift. HR SB/SR. Pt in bed w/ daughter at bedside. R groin site oozing, new closure pad and gauze placed. Pt OOB to bathroom w/ RN assist. Slight ooze noted from R groin after ambulation. Site soft, no hematoma. Nitro gtt
tapered to off per order. Slight ecchymosis above R AC site where nitro had been infusing - R AC IV pulled. 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 Discussed plan of care and educated pt on CAD. Pt
receptive. Pt denies any CP, SOB, or lightheadedness/dizziness.
R groin dressing oozing from under dressing. New gauze and tegaderm placed over site. No hematoma.
[2024-09-27 04:13] LABS: Hematocrit 37.6 % (37.0-47.0); Mean Corp Hgb Conc. 31.9 g/dL (33.0-37.0); Mean Corpuscular Hgb 29.9 pg (27.0-31.0); Mean Corpuscular Volume 93.8 fL (81.0-99.0); Mean Platelet Volume 10.9 fL (7.4-10.4); Platelet Count 229 10^3/uL (130-400); Red Blood Cell Count 4.01 10^6/uL (4.20-5.40); Red Cell Dist. Width 13.6 % (11.5-14.5); White Blood Cell Count 9.4 10^3/uL (4.8-10.8)
[2024-09-27 04:51] LABS: Blood Urea Nitrogen 42 mg/dl (7-17); Calcium 9.7 mg/dl (8.4-10.2); Carbon Dioxide 22 mmol/L (22-30); Chloride 105 mmol/L (98-107); Estimated Creatinine Clearance 26 ml/min; Glucose 136 mg/dl (70-99); Magnesium 2.2 mg/dl (1.6-2.3); Potassium 4.4 mmol/L (3.5-5.1); Sodium 139 mmol/L (135-145); eGFR 39.31
[2024-09-27 07:50] LABS: Glucose - Point of Care 114 mg/dl (70-99)
--- NOTE | 2024-09-27 08:26 | W.PN.HOSP.TC ---
Today's Communication/Plan
-
DC if cleared by card
Assessment / Plan
Assessment / Plan
HPI: 89 yo F PMH CAD s/p 3 stents, HTN, HLD, NIDDM, CKD, p/w CP that felt similar to her previous RI.
She woke up with chest discomfort in the morning.
Patient was given aspirin 324 mg en route along with 2 nitroglycerin and no change.
Her record press supervisor is Dr. Rojas from [facility]
A/P:
# Chest pain likely 2/2 ACS/NSTEMI
# h/o CAD s/p 3 stents
Troponin peaked at 2.44
EKG was unrevealing
s/p cardiac cath 09/26, PCI to RCA
Cont uninterrupted dual antiplatelet therapy ASA plavix
Of note, echo showed: EF 70%. Stage II diastolic dysfunction. Moderate mitral regurgitation
# HTN emergency, resolved
s/p Nitro gtt as above
Cont HAND ORNAMENT MAKER hydralazine, metoprolol, and spironolactone
Toprol dose increased to 25 mg daily
# Hyperlipidemia
allergic to statins
# IDDM
Pt on Aspart PRN HAND ORNAMENT MAKER
Cont SSI coverage
A1C 6.3%
# NERIS on CKD stage 3, ?cardiorenal
Follow SCr 1.4 -> 1.3
repeat BMP outpt with result to PCP
DVT ppx: off heparin drip
Full code
DW Card
DW RN
Anticipated Discharge: Today
Subjective/Interval History
-
Date of Service: September 27, 2024
Objective Data
-
Labs:
Laboratory Results
09/26/24 09/27/24
21:04 03:39
WBC 9.4
Hgb 12.0
Hct 37.6
Plt Count 229
APTT Cancelled
Sodium 139
Potassium 4.4
Chloride 105
Carbon Dioxide 22
BUN 42 H
Creatinine 1.3 H
Glucose 136 H
Calcium 9.7
Vital Signs:
Vital Signs
Temp Pulse Resp BP Pulse Ox
36.7 C 51 20 94/82 96
09/27/24 07:43 09/27/24 06:15 09/27/24 07:43 09/27/24 03:16 09/27/24 07:43
I&O
09/26/24 09/27/24 09/28/24
06:59 06:59 06:59
Intake Total 15.5 / 15.5 240 / 240
Output Total 1350 / 1350 100 / 100
Balance -1334.5 / -1334.5 140 / 140
Review of Systems
-
All other systems: Reviewed and negative
Physical Exam
-
General: Well Developed, Well Nourished, No Apparent Distress, Comfortable and Conversant; Negative Respiratory Distress
HEENT: Normocephalic, Atraumatic, Nose Appears Normal and Ears Appear Normal; Negative Oxygen
Respiratory: Clear to Auscultation and Non Labored Respirations; Negative Accessory Resp Muscle Use
Cardiac: Regular Rhythm and S1/S2
GI: Soft, Nontender, Nondistended and Normal Bowel Sounds
Skin: Warm and Dry
Neuro: Awake, Alert, Oriented and AO x 3
Psych: Calm and Intact Judgement/Insight
Data Reviewed
-
Labs: Labs Reviewed by me
[2024-09-27] MEDS: PLAVIX 75 MG PO (09:06)
[2024-09-27] MEDS: PROTONIX 20 MG PO (09:06)
[2024-09-27] MEDS: ASPIR LOW (ENTERIC COATED) 81 MG PO (09:07)
--- NOTE | 2024-09-27 09:08 | W.PN.CARDCBS ---
Today's Communication / Plan
-
Stable cardiac status
Discharge today or tomorrow based on patient mobility
See medication recommendations below
Impression / Plan
-
Assistant To The Dean: Dr. Rojas Zwinglevictor manuel
Impression:
Presented with chest pain.
NSTEMI
CAD
h/o NM in 2011 and 2022. Total of 3 stents altogether by report ([facility])
Hypertension with recent difficulty controlling
Diabetes mellitus
Hyperlipidemia intolerant to medication
Fatigue
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
Chronic kidney disease
Hemorrhoids with constipation
Multiple medication allergies including allergy to IV contrast
Plan:
Overall, she looks well.
However, she says that she is unsteady and does not feel ready to go home.
Blood pressure was lower earlier today but now better. Nitroglycerin has been stopped.
Peak troponin was less than 3. Her EKG today is normal.
Will discuss with hospitalist.
She may be a good candidate for a PCS K9 inhibitor. Will defer to Dr. Rojas. She should follow-up to him.
Recommended cardiac medications at discharge:
Aspirin 81 mg a day
Clopidogrel 75 mg a day
Hydralazine 50 mg 3 times daily
Pantoprazole 20 mg a day
Spironolactone 12.5 mg a day
Metoprolol ER 25 mg twice daily
Progress Note - Assistant To The Dean
Subjective
Date of Service: September 27, 2024:.
Patient with RCA PCI/stent September 26
117/56, pulse 58, respiratory rate 20, sats 96%, head neck exam unremarkable, lungs are clear, regular rate and rhythm, puncture site intact, abdomen benign extremities without clubbing cyanosis or edema
ECG sinus rhythm, normal ECG
Leg vein ultrasound on the negative
Chest x-ray on admission negative
Hemoglobin 12, BUN and creatinine 42 and 1.3, troponin 1.5, peak was 2.44
Cardiac catheterization 09/26/2024: 3.0 x 18 mm [place] stent to mid RCA, nonobstructive left main disease, 30% ostial LAD, patent first diagonal stent,, eccentric 60-70% ostial circumflex stenosis, similar to 2022, hazy 60-70% RCA stenosis, no venogram
Echo EF: 70%, moderate MR, pulmonary artery systolic pressure 45-50 mmHg
Objective
Labs:
09/27/24 03:39
09/27/24 03:39
Labs
Hgb 12.0 g/dL (12.0-16.0) 09/27/24 03:39
Hct 37.6 % (37.0-47.0) 09/27/24 03:39
Plt Count 229 10^3/uL (130-400) 09/27/24 03:39
APTT Cancelled 09/26/24 21:04
Sodium 139 mmol/L (135-145) 09/27/24 03:39
Potassium 4.4 mmol/L (3.5-5.1) 09/27/24 03:39
BUN 42 mg/dl (7-17) H 09/27/24 03:39
Creatinine 1.3 mg/dL (0.6-1.0) H 09/27/24 03:39
Glucose 136 mg/dl (70-99) H 09/27/24 03:39
Troponins
09/25/24 09/25/24 09/26/24
14:35 19:46 09:27
Troponin I 1.170 H* 2.440 H* D 0.805 H*
09/26/24 09/26/24 09/26/24
17:00 17:01 17:32
Troponin I Cancelled Cancelled 1.730 H*
09/26/24
22:30
Troponin I 1.460 H*
Vital Signs and I&O:
Vital Signs
Temp Pulse Resp BP Pulse Ox
36.7 C 58 20 117/56 96
09/27/24 07:43 09/27/24 08:45 09/27/24 07:43 09/27/24 09:05 09/27/24 09:00
Vital Signs
Temp Pulse Resp BP Pulse Ox
36.7 C 58 20 117/56 96
09/27/24 07:43 09/27/24 08:45 09/27/24 07:43 09/27/24 09:05 09/27/24 09:00
Intake & Output
09/25/24 09/26/24 09/27/24 09/28/24
07:59 07:59 07:59 07:59
Intake Total 15.5 / 15.5 240 / 240 180 / 180
Output Total 1450 / 1450
Balance -1434.5 / -1434.5 240 / 240 180 / 180
Physical Exam
Physical Exam
See above
[2024-09-27] MEDS: TOPROL XL 25 MG PO ×2 (10:03→19:39)
[2024-09-27] MEDS: APRESOLINE 50 MG PO ×3 (10:03→22:46)
[2024-09-27] MEDS: ALDACTONE 12.5 MG PO (10:03)
[2024-09-27 11:56] LABS: Glucose - Point of Care 121 mg/dl (70-99)
[2024-09-27] MEDS: TYLENOL 650 MG PO ×2 (12:36→18:00)
[2024-09-27 17:13] LABS: Glucose - Point of Care 121 mg/dl (70-99)
--- NOTE | 2024-09-27 18:22 | PTCARENOTE ---
Pt reported voiding very small amounts of urine, she denies any burning with urination, bladder scan shows PVR of 74mls only. Pt c/o 07/10 left lower jaw discomfort which she states she has had for 2 days. Pt states she had crowns placed 2 months
ago. Pt given tylenol and ice pack with minimal relief, Dr. Eason notified. Pt walked in halls with RN using a walker, pt has very tentative stumbling gait and reports plantar fasciitis. Pt at risk to fall, precautions in place, pt is calling for
assistance.
--- NOTE | 2024-09-28 00:50 | PTCARENOTE ---
Pt received start of shift, HR SB/SR. R groin site dressing CDI. Site soft, no hematoma. Reinforced medication education w/ pt and pt's daughter. Pt ambulating w/ rolling walker x1 assist. Pt gait unsteady. Pt states she does feel lightheaded when
initially standing up. Pt c/o jaw pain that ebbs and flows. Ice pack and tylenol prn for pain management. Pt denies any CP.
[2024-09-28 04:07] VITALS: BP 131/51
[2024-09-28 05:05] LABS: Hematocrit 35.8 % (37.0-47.0); Hemoglobin 11.7 g/dL (12.0-16.0); Mean Corp Hgb Conc. 32.7 g/dL (33.0-37.0); Mean Corpuscular Hgb 30.9 pg (27.0-31.0); Mean Corpuscular Volume 94.5 fL (81.0-99.0); Mean Platelet Volume 11.3 fL (7.4-10.4); Platelet Count 204 10^3/uL (130-400); Red Blood Cell Count 3.79 10^6/uL (4.20-5.40); Red Cell Dist. Width 13.8 % (11.5-14.5); White Blood Cell Count 9.3 10^3/uL (4.8-10.8)
[2024-09-28 05:29] LABS: Blood Urea Nitrogen 44 mg/dl (7-17); Calcium 9.6 mg/dl (8.4-10.2); Carbon Dioxide 26 mmol/L (22-30); Chloride 106 mmol/L (98-107); Estimated Creatinine Clearance 24 ml/min; Glucose 111 mg/dl (70-99); Potassium 4.6 mmol/L (3.5-5.1); Sodium 141 mmol/L (135-145); eGFR 35.96
[2024-09-28 06:00] VITALS: BMI 26.5
[2024-09-28 07:22] VITALS: BP 154/59
--- NOTE | 2024-09-28 08:13 | W.PN.HOSP.TC ---
Addendum entered and electronically signed by Kaitlin Eason MD 09/28/24 12:21:
total DC time 37 min
d/w card team, recc to cont Toprol at 25 mg daily
Original Note:
Today's Communication/Plan
-
see A/P
Assessment / Plan
Assessment / Plan
HPI: 89 yo F PMH CAD s/p 3 stents, HTN, HLD, NIDDM, CKD, p/w CP that felt similar to her previous DE.
She woke up with chest discomfort in the morning.
Patient was given aspirin 324 mg en route along with 2 nitroglycerin and no change.
Her wool merchant is Dr. Rojas from [facility]
A/P:
# Chest pain likely 2/2 ACS/NSTEMI
# h/o CAD s/p 3 stents
Troponin peaked at 2.44
EKG was unrevealing
s/p cardiac cath 09/26, PCI to RCA
Cont uninterrupted dual antiplatelet therapy ASA plavix
Of note, echo showed: EF 70%. Stage II diastolic dysfunction. Moderate mitral regurgitation
# HTN emergency, resolved
s/p Nitro gtt as above
Cont WARDROBE SPECIALTY WORKER hydralazine, metoprolol, and spironolactone
Would resume WARDROBE SPECIALTY WORKER Imdur upon discharge.
Would cont Toprol at WARDROBE SPECIALTY WORKER dose at 12.5 mg daily since Imdur to be restarted and also pt's HR on the slower side
# Pt c/o L sided jaw pain suspect 2/2 dental issues
Informed pt to see dentist following discharge
# Hyperlipidemia
allergic to statins
# IDDM
Pt on Aspart PRN WARDROBE SPECIALTY WORKER
Cont SSI coverage
A1C 6.3%
# NERIS on CKD stage 3, ?cardiorenal
SCr remain at 1.4
repeat BMP outpt with result to PCP
DVT ppx: off heparin drip
Full code
Anticipated Discharge: Today
Subjective/Interval History
-
Date of Service: September 28, 2024
Objective Data
-
Labs:
Laboratory Results
09/28/24
04:14
WBC 9.3
Hgb 11.7 L
Hct 35.8 L
Plt Count 204
Sodium 141
Potassium 4.6
Chloride 106
Carbon Dioxide 26
BUN 44 H
Creatinine 1.4 H
Glucose 111 H
Calcium 9.6
Vital Signs:
Vital Signs
Temp Pulse Resp BP Pulse Ox
36.3 C 51 18 131/51 98
09/28/24 07:21 09/28/24 04:45 09/28/24 07:21 09/28/24 04:07 09/28/24 07:21
I&O
09/27/24 09/28/24 09/29/24
06:59 06:59 06:59
Intake Total 240 / 240 660 / 660
Output Total 100 / 100 200 / 200
Balance 140 / 140 460 / 460
Review of Systems
-
All other systems: Reviewed and negative
Physical Exam
-
General: Well Developed, Well Nourished, No Apparent Distress, Comfortable and Conversant; Negative Respiratory Distress
HEENT: Normocephalic, Atraumatic, Nose Appears Normal and Ears Appear Normal; Negative Oxygen
Respiratory: Clear to Auscultation and Non Labored Respirations; Negative Accessory Resp Muscle Use
Cardiac: Regular Rhythm and S1/S2
GI: Soft, Nontender, Nondistended and Normal Bowel Sounds
Skin: Warm and Dry
Neuro: Awake, Alert, Oriented and AO x 3
Psych: Calm and Intact Judgement/Insight
Data Reviewed
-
Labs: Labs Reviewed by me
[2024-09-28 08:28] LABS: Glucose - Point of Care 131 mg/dl (70-99)
--- NOTE | 2024-09-28 08:29 | W.PN.CARDCBS ---
Addendum entered and electronically signed by Osbaldo Whittaker MD 09/28/24 09:26:
No cardiac complaints. She has jaw pain had recent dental work, plantar fasciitis. No chest discomfort or dyspnea
PMH/PSH/FH/SH: Reviewed
Meds reviewed
Numerous allergies on summary screen
PMH: CAD, DC in 2011 and 2022, status post PCI, hypertension, type 2 diabetes, hyperlipidemia, statin intolerant, history of DVT with IVC filter, chronic kidney disease
154/59, pulse 50s, was in 40s, head neck exam unremarkable lungs are clear, relatively soft apical murmur, JVD okay, extremities without edema, right groin intact
Impression: See below
Plan:
Stable for discharge
Recommended cardiac medications:
Aspirin 81 mg a day
Clopidogrel 75 mg a day
Hydralazine 50 mg 3 times daily
Pantoprazole 20 mg a day
Spironolactone 12.5 mg a day
Metoprolol ER 25 mg once daily (Note below specified metoprolol ER 25 mg twice daily, but recommend once daily given bradycardia)
To consider PCS K9 inhibitor at discharge
Follow-up to Dr. Rojas at [facility].
Original Note:
Today's Communication / Plan
-
Continue low-dose Toprol, aspirin and Plavix.
Consider addition of PCSK9 inhibitor as outpatient
Patient stable from cardiac standpoint for discharge
Outpatient cardiology follow-up has been arranged
Impression / Plan
-
Snow Groomer: Dr. Rojas [facility]
Impression:
Presented with chest pain.
NSTEMI
CAD
h/o DC in 2011 and 2022. Total of 3 stents altogether by report ([facility])
Hypertension with recent difficulty controlling
Diabetes mellitus
Hyperlipidemia intolerant to medication
Fatigue
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
Chronic kidney disease
Hemorrhoids with constipation
Multiple medication allergies including allergy to IV contrast
Cardiac catheterization 09/26/2024: LM:40% tubular narrowing with focal 20% distal stenosis. LAD:ostial 30%, patent mid LAD stent. Left circumflex: 60 to 70% ostial stenosis. RCA patent proximal stent. 60 to 70% hazy mid s/p 3.0 x 18 mm [place]
stent.
Plan:
Presented with chest pain and rule in with NSTEMI with peak troponin, 2.44. Found to have mid RCA stenosis for which she underwent 3.0 x 18 mm [place] SAADIA.
Overall, she looks well. Has been chest pain-free post PCI. Will need uninterrupted dual antiplatelet therapy with aspirin and Plavix for 1 year.
Review of telemetry shows bradycardia. Patient asymptomatic. Would continue low-dose Toprol. Unable to tolerate MARY/ARB secondary to intolerance/side effects.
Blood pressure somewhat labile and found to be hypotensive at times. Isosorbide discontinued. BP has improved.
Lipids 09/26/2024 TC 192, HDL 60, LDL 117, triglycerides 78. Patient has known history of statin intolerance and does not tolerate Zetia. Likely would benefit from PCSK9 inhibitor. She will discuss with her outpatient director river restoration Dr. Rojas
Outpatient cardiology follow-up arranged with Dr. Rojas. Patient stable for discharge
Recommended cardiac medications at discharge:
Aspirin 81 mg a day
Clopidogrel 75 mg a day
Hydralazine 50 mg 3 times daily
Pantoprazole 20 mg a day
Spironolactone 12.5 mg a day
Metoprolol ER 25 mg twice daily
Progress Note - Snow Groomer
Subjective
Date of Service: September 28, 2024
Patient seen and examined. Patient reports she is feeling well. She is complaining of teeth pain and sensitivity to hot and cold when eating. She reports this was gone on prior to admission. Denies chest pain or shortness of breath
Objective
Labs:
09/28/24 04:14
09/28/24 04:14
Labs
Hgb 11.7 g/dL (12.0-16.0) L 09/28/24 04:14
Hct 35.8 % (37.0-47.0) L 09/28/24 04:14
Plt Count 204 10^3/uL (130-400) 09/28/24 04:14
APTT Cancelled 09/26/24 21:04
Sodium 141 mmol/L (135-145) 09/28/24 04:14
Potassium 4.6 mmol/L (3.5-5.1) 09/28/24 04:14
BUN 44 mg/dl (7-17) H 09/28/24 04:14
Creatinine 1.4 mg/dL (0.6-1.0) H 09/28/24 04:14
Glucose 111 mg/dl (70-99) H 09/28/24 04:14
Troponins
09/25/24 09/25/24 09/26/24
14:35 19:46 09:27
Troponin I 1.170 H* 2.440 H* D 0.805 H*
09/26/24 09/26/24 09/26/24
17:00 17:01 17:32
Troponin I Cancelled Cancelled 1.730 H*
09/26/24
22:30
Troponin I 1.460 H*
Vital Signs and I&O:
Vital Signs
Temp Pulse Resp BP Pulse Ox
97.4 F 50 18 154/59 98
09/28/24 07:21 09/28/24 08:15 09/28/24 07:21 09/28/24 07:22 09/28/24 07:21
Vital Signs
Temp Pulse Resp BP Pulse Ox
97.4 F 50 18 154/59 98
09/28/24 07:21 09/28/24 08:15 09/28/24 07:21 09/28/24 07:22 09/28/24 07:21
Intake & Output
09/26/24 09/27/24 09/28/24/30/24
06:59 06:59 06:59 06:59
Intake Total 15.5 / 15.5 240 / 240 660 / 660
Output Total 1350 / 1350 100 / 100 200 / 200
Balance -1334.5 / -1334.5 140 / 140 460 / 460
Physical Exam
Physical Exam
GEN: No distress, awake, Ox3, sitting up in chair
HEENT: supple, anicteric, mmm
LUNGS: CTA, no wheezes/rales
CV: Reg, S1/S2, 2/6 syst murmur
ABD: soft, BS+, NT/ND
EXT: No edema, clubbing or cyanosis; right femoral arterial access site clean dry intact, no evidence of infection, hematoma, or ecchymosis
NEURO: Gross non-focal
SKIN: No rash, warm, dry, pink
[2024-09-28] MEDS: TYLENOL 650 MG PO (09:00)
[2024-09-28] MEDS: ASPIR LOW (ENTERIC COATED) 81 MG PO (09:00)
[2024-09-28] MEDS: PROTONIX 20 MG PO (09:01)
[2024-09-28] MEDS: APRESOLINE 50 MG PO (09:01)
[2024-09-28] MEDS: ALDACTONE 12.5 MG PO (09:01)
[2024-09-28] MEDS: PLAVIX 75 MG PO (09:01)
--- NOTE | 2024-09-28 09:16 | CM ---
Plan for DC to home today w/ [facility]. Apparently, patient was open for services prior to admission. I sent a referral to [facility] on Tuesday. Call today to central intake and they informed patient was open for services. Sent updated
referral and will send DC Summary.
Met w/ patient at bedside.
Pt. is prepared for DC today.
Reviewed DC plan.
Plan: [facility] TANVI
[2024-09-28] MEDS: TOPROL XL 25 MG PO (09:55)
[2024-09-28 10:22] VITALS: BP 127/50
[2024-09-28 10:38] VITALS: BP 127/50; PULSE 59; O2SAT 98
[2024-09-28 10:42] VITALS: BP 128/58
[2024-09-28 10:43] VITALS: BP 127/50; PULSE 59; O2SAT 98
--- NOTE | 2024-09-28 12:08 | W.DCSUMMARY ---
Discharge Summary
Discharge Data
Date of Admission: 09/25/24
Date of Discharge: 09/28/24
-
Pending Results: No
Hospital Course
Principal Diagnosis:
Chest pain secondary to non-ST elevation myocardial infarction
Hypertension emergency, resolved.
Left sided jaw/dental pain.
Chronic Diagnoses:�
Coronary artery disease status post 3 cardiac stents
Essential hypertension
Hyperlipidemia
Tyc-[id number] diabetes
Chronic kidney disease stage III
Consultations:�
Cardiology
Procedures:�
Cardiac cath 09/26, with PCI to RCA
Clinical course:�
This is a 89-year-old female with past medical history as stated above, who presented with chest pain that is felt similar to her previous myocardial infarction.
Problem 1:
Chest pain secondary to non-ST elevation myocardial infarction.
Her troponin peaked at 2.44.
Interestingly, her EKG was unrevealing.
She underwent cardiac cath on 09/26, and had PCI to her RCA.
She can continue aspirin Plavix (which she was already on from prior to admission).
Her Toprol dose was increased from 12.5 mg daily to 25 mg daily.
Of note, her echo showed EF 70%. Stage II diastolic dysfunction. Moderate mitral regurgitation
Problem 2:
HTN emergency, resolved.
She initially received nitro drip.
Her prior to admission Toprol was increased from 12.5 mg daily to 25 mg daily (recommended by the solar mechanical engineer).
She can continue with her prior to admission hydralazine, spironolactone and Imdur.
Problem 3:
L sided jaw/dental pain.
Informed pt to see dentist following discharge
As for the rest of her medical problems, they were stable during her hospital stay.
Discharge Plan
-
Patient Disposition: Home with Home Care
Discharge Diagnosis/Procedures: Chest pain due to heart attack/myocardial infarction;
Status post cardiac catheterization with cardiac stent placed in right coronary artery
Condition: Fair
Diet: As tolerated, Low Fat, Low Cholesterol and Low Sodium
Activity: As tolerated
Driving Restrictions: As prior to admission
Stand Alone Forms: DC Instructions- Cath/EP Lab
Referrals:
[facility] [Outside] - in one to two days ( )
Oneil Taylor MD [Family Provider] - in less than 1 week
Alex Rojas MD [Non-Admitting Privileges] - 10/30/24 10:40 am (You have cardiology follow-up with Dr. Rojas on October 30 at 10:40 AM at their [place] office. If you are unable to make this appointment please call [phone] to
reschedule)
Additional Discharge Medication Instructions: Continue aspirin and Plavix uninterrupted for one year
Your Toprol was increased from 12.5 to 25 mg daily per cardiology recommendation
Prescriptions:
New
metoprolol succinate [Toprol XL] 25 mg tablet extended release 24 hr
25 mg PO DAILY Qty: 30 0RF
aspirin 81 mg Tablet,Delayed Release (Dr/Ec)
81 mg PO DAILY Qty: 1 0RF
Continued
isosorbide mononitrate 30 mg Tablet Extended Release 24 Hr
30 mg PO DAILY
spironolactone 25 mg Tablet
12.5 mg PO DAILY
Fiasp FlexTouch U-100 Insulin 100 unit/mL (3 mL) Insulin Pen
3 unit SC DAILYPRN PRN (Reason: bs greater then 150)
psyllium Packet
1 packet PO DAILYPRN PRN (Reason: constipation)
pantoprazole [Protonix] 20 mg Tablet,Delayed Release (Dr/Ec)
20 mg PO DAILY
nitroglycerin [Nitrostat] 0.4 mg Tablet, Sublingual
0.4 mg SUBLINGUAL [id number] PRN (Reason: chest pain)
docusate sodium [Colace] 100 mg Capsule
100 mg PO DAILYPRN PRN (Reason: cosntipation)
hydralazine 50 mg Tablet
50 mg PO TID
clopidogrel [Plavix] 75 mg Tablet
75 mg PO DAILY Qty: 30 0RF
Discontinued
aspirin 81 mg Tablet,Delayed Release (Dr/Ec)
81 mg PO DAILYPRN PRN (Reason: chest pain)
metoprolol succinate [Toprol XL] 25 mg Tablet Extended Release 24 Hr
12.5 mg PO DAILY
Discharge Orders:
Discharge Patient (As Directed); Ordered 09/28/24
Ordered By: Kaitlin Eason
Care Plan Goals
Care Plan Goals:
Problem: Readiness for enhanced knowledge related to diagnosis and treatment plan
Goal: Understand your diagnosis and treatment plan needs, including medications if applicable.
Instructions: Know your diagnosis, underlying causes and treatment plan options, including medications if applicable. Consult with your health care team to learn about your diagnosis and treatment plan, including medications if applicable.
Discharge Date and Time
Print Language: ARMENIAN
--- NOTE | 2024-09-28 12:26 | PTCARENOTE ---
Pt continues to report left sided lower jaw pain, worse after drinking hot liquids, minimal relief with ice and tylenol. Pt urged to contact her dentist. Pt seen by PT/OT and Riddhi Eason and Jayesh. Telemetry and IV device removed. Discharge
instructions reviewed with pt regarding medications and their new doses and possible side effects, wound care, activity guidelines, reporting cares and concerns and follow up appt's. Very good understanding taught back to RN. Pt escorted out via
wheelchair and discharged to home.
== END 2024-09-28 12:20 | disposition home health service (06) | DRG 322 ==
LOC: IVU 17:50
PROVIDERS: Emergency Medicine; Internal Medicine Interventional Cardiology; Nurse Practitioner Family; Physician Assistant; ADMITTING PHYSICIAN Internal Medicine; ATTENDING PHYSICIAN Internal Medicine; CONSULT PHYSICIAN Internal Medicine Cardiovascular Disease; EMERGENCY PHYSICIAN Emergency Medicine; FAMILY PHYSICIAN Family Medicine
PROC: 02703DZ Dilation of Coronary Artery, One Artery with Intraluminal Device, Percutaneous Approach (ICD-10-PCS; 2024-09-26)
PROC: B211YZZ Fluoroscopy of Multiple Coronary Arteries using Other Contrast (ICD-10-PCS; 2024-09-26)
PROC: 4A023N7 Measurement of Cardiac Sampling and Pressure, Left Heart, Percutaneous Approach (ICD-10-PCS; 2024-09-26)
DX: I21.4 Non-ST elevation (NSTEMI) myocardial infarction (principal); I16.1 Hypertensive emergency; E78.00 Pure hypercholesterolemia, unspecified; E11.22 Type 2 diabetes mellitus with diabetic chronic kidney disease; I12.9 Hypertensive chronic kidney disease with stage 1 through stage 4 chronic kidney disease, or unspecified chronic kidney disease; N18.31 Chronic kidney disease, stage 3a; K21.9 Gastro-esophageal reflux disease without esophagitis; I25.10 Atherosclerotic heart disease of native coronary artery without angina pectoris; I08.3 Combined rheumatic disorders of mitral, aortic and tricuspid valves; K64.9 Unspecified hemorrhoids; K59.00 Constipation, unspecified; I25.2 Old myocardial infarction; Z95.5 Presence of coronary angioplasty implant and graft; Z82.49 Family history of ischemic heart disease and other diseases of the circulatory system; Z79.4 Long term (current) use of insulin; Z79.02 Long term (current) use of antithrombotics/antiplatelets; Z79.82 Long term (current) use of aspirin; Z79.899 Other long term (current) drug therapy; Z86.718 Personal history of other venous thrombosis and embolism; Z88.1 Allergy status to other antibiotic agents; Z88.5 Allergy status to narcotic agent; Z88.6 Allergy status to analgesic agent; Z88.8 Allergy status to other drugs, medicaments and biological substances; Z91.041 Radiographic dye allergy status; Z95.828 Presence of other vascular implants and grafts; K08.89 Other specified disorders of teeth and supporting structures
CPT/HCPCS: 71045; 80048; 80053; 80061; 82962; 83036; 83735; 84443; 84484; 85025; 85027; 85347; 85730; 93005; 93306; 93458; 93971; 96374; 96375; 96376; 97162; 97166; 99291; C1725; C1760; C1769; C1874; C1894; C9600; Q9967